=== PATIENT | male | born 1940 | race American Indian/Alaskan Native ===

== ENCOUNTER 2016-09-23 12:40 | Inpatient (IN) | payer MEDICARE ==
[2016-09-23 13:39] LABS: Basophils % (Auto) 0.7 % (0.0-1.8); Eosinophils % (Auto) 1.1 % (0.0-4.3); Hemoglobin 15.4 gm/dl (11.8-15.2); Mean Corpuscular HGB Conc 33 % (32-34); Mean Corpuscular Hemoglobin 30 pg (28-32); Mean Corpuscular Volume 92 fl (84-94); Platelet Count 341 K/mm3 (140-440); Red Blood Count 5.09 M/mm3 (3.65-5.03); Red Cell Distribution Width 14.9 % (13.2-15.2); White Blood Count 5.1 K/mm3 (4.5-11.0)
[2016-09-23 13:44] LABS: BUN/Creatinine Ratio 17.91; Calcium 9.6 mg/dL (8.4-10.2); Chloride 96.9 mmol/L (98-107)
[2016-09-23 13:50] LABS: Potassium 6.2 mmol/L (3.6-5.0)
[2016-09-23 14:05] LABS: Bilirubin,Urine NEG (Negative); Blood,Urine LG (Negative); Ketones,Urine NEG (Negative); Leukocyte Esterase,Urine TR (Negative); Nitrite,Urine NEG (Negative); RBC,Urine > 182.0 /HPF (0.0-6.0); Urobilinogen,Urine < 2.0 mg/dL (<2.0)
[2016-09-23] MEDS ORDERED: NACL 0.9% 1000 ML 1,000 ML IV ONE (14:21)
[2016-09-23] MEDS ORDERED: CALCIUM GLUCONATE 1,000 MG in NACL 0.9% 100 ML IV ONE (14:21)
--- NOTE | 2016-09-23 14:27 | Emergency Department Report ---
ED Male HPI - General Chief complaint: Urogenital-Male Stated complaint: PROSTATE PROBLEM Time Seen by Provider: 09/23/16 14:12 Source: patient Mode of arrival: Ambulatory Limitations: No Limitations - History of Present Illness Initial comments: 76-year-old male presents to the emergency department complaining of hematuria and dysuria for the past 2 weeks. Patient reports dark red blood in his urine. He denies abdominal pain or fever. Patient sees Dr. Mir, urology, for enlarged prostate. There are no other complaints. MD Complaint: dysuria -: Gradual, week(s) (2) Location: penis Radiation: none Severity: mild Quality: burning Consistency: intermittent Improves with: none Worsens with: urination blood in urine - Related Data Home Medications Medication Instructions Recorded Confirmed Last Taken Unobtainable 09/23/16 09/23/16 Unknown Allergies Allergy/AdvReac Type Severity Reaction Status Date / Time iodine Allergy Rash Verified 09/23/16 13:14 Sulfa (Sulfonamide Allergy Rash Verified 09/23/16 13:14 Antibiotics) ED Review of Systems ROS: Stated complaint: PROSTATE PROBLEM Other details as noted in HPI Comment: All other systems reviewed and negative Genitourinary: dysuria, hematuria ED Past Medical Hx - Past Medical History Previous Medical History?: Yes Hx Hypertension: Yes Hx Diabetes: Yes Additional medical history: enlarged prostate - Surgical History Past Surgical History?: Yes Additional Surgical History: TURP - Family History Family history: no significant - Social History Smoking Status: Current Every Day Smoker Substance Use Type: Alcohol, Non Opiate Pain, Prescribed - Medications Home Medications: Home Medications Medication Instructions Recorded Confirmed Last Taken Type Unobtainable 09/23/16 09/23/16 Unknown History ED Physical Exam - General Limitations: No Limitations General appearance: alert, in no apparent distress - Head Head exam: Present: atraumatic, normocephalic - Eye Eye exam: Present: normal appearance, PERRL, EOMI - ENT ENT exam: Present: normal exam, normal orophraynx, mucous membranes moist - Neck Neck exam: Present: normal inspection, full ROM. Absent: tenderness - Respiratory Respiratory exam: Present: normal lung sounds bilaterally. Absent: respiratory distress - Cardiovascular Cardiovascular Exam: Present: regular rate, normal rhythm, normal heart sounds - GI/Abdominal GI/Abdominal exam: Present: soft, normal bowel sounds. Absent: distended, tenderness - Extremities Exam Extremities exam: Present: normal inspection, full ROM. Absent: tenderness - Back Exam Back exam: Present: normal inspection, full ROM. Absent: tenderness - Neurological Exam Neurological exam: Present: alert, oriented X3. Absent: motor sensory deficit - Skin Skin exam: Present: warm, dry, intact ED Course Vital Signs 09/23/16 13:14 Temperature 97.5 F L Pulse Rate 88 Respiratory 20 Rate Blood Pressure 128/75 O2 Sat by Pulse 99 Oximetry - Consultations Consultation #1: 09/23/16 14:27 I have spoken with Dr[address] Mir, urology. He is requesting noncontrast CT of the abdomen and pelvis due to the hematuria. Consultation #2: 09/23/16 14:[address] Russell, nephrology. He is requesting the patient be given 30 g of Kayexalate orally. ED Medical Decision Making - Lab Data Result diagrams: 09/23/16 13:24 09/23/16 13:24 - Medical Decision Making Laboratory results reviewed and discussed with the patient. Patient reports no history of renal problems. Elevated creatinine with elevated potassium levels are noted. Giving IV calcium as well as IV insulin and dextrose. Starting IV fluids. Consult was placed to nephrology and urology. Patient is to be admitted by the hospitalist. - Differential Diagnosis BPH, UTI, prostatitis Critical Care Time: Yes Critical care time in (mins) excluding proc time.: 30 Critical care attestation.: If time is entered above; I have spent that time in minutes in the direct care of this critically ill patient, excluding procedure time. Critical Care Time: The high probability of a clinically significant, sudden or life threatening deterioration of the renal, cardiovascular system(s) required my full and direct attention, intervention and personal management. The aggregate critical care time was 30 minutes. This time is in addition to time spent performing reported procedures but includes the following: [x] Data Review and interpretation [x] Patient assessment and monitoring of vital signs [x] Documentation [x] Medication orders and management ED Disposition Clinical Impression: Hematuria, Hyperkalemia Acute renal failure Qualifiers: Acute renal failure type: unspecified Qualified Code(s): N17.9 - Acute kidney failure, unspecified Disposition: OP ADMITTED IP TO THIS HOSP Is pt being admited?: Yes Condition: Stable Time of Disposition: 14:33
[2016-09-23] MEDS ORDERED: KAYEXALATE PO ONE (14:31)
[2016-09-23] MEDS ORDERED: CALCIUM GLUCONATE IV ONE (14:44)
[2016-09-23] MEDS ORDERED: D50W (25GM) IV ONE ×2 (15:00→16:35)
[2016-09-23] MEDS ORDERED: NACL 0.9% 1000 ML 1,000 ML IV SCH (15:00)
[2016-09-23] MEDS ORDERED: CALCIUM CHLORIDE IV ONE (15:06)
--- NOTE | 2016-09-23 16:26 | Cat Scan Report ---
CT abdomen and pelvis without contrast: Transverse images were obtained from the low chest and ischium with coronal and sagittal 2-D reformatted images. The visualized lung bases are clear. The solid abdominal organs are generally unremarkable. There is a hypodense 2.45 cm right adrenal mass and a 3.1 cm left adrenal mass. The attenuation of both masses is consistent with having significant fat. The kidneys are unremarkable with no evidence of mass, hydronephrosis, or calculi. The abdominal aorta is normal in size and contour but there is significant mural calcification. The unopacified bowel and mesentery appear unremarkable. The appendix is visualized. No free air or abnormal fluid collections. Sections through the pelvis demonstrates a left inguinal hernia containing fat. There is moderate enlargement of the prostate gland with indentation on the bladder base. Mild spondylosis of the lumbar spine is noted. There is a large Schmorl's node in the inferior L5 body. The bones are generally demineralized. Impressions: 1. Bilateral adrenal adenomas. 2. Prosthetic enlargement. 3. Demineralized bones and degenerative lumbar spine changes as detailed above.
--- NOTE | 2016-09-23 18:43 | Event Note ---
Date: 09/23/16 See H/p in reports Acute renal failure Hematuria Hyperkalemia HTN T2dm HLD
[2016-09-23] MEDS ORDERED: VERAPAMIL HCL 120 MG PO SCH (19:00)
[2016-09-23] MEDS ORDERED: ROCEPHIN/NS 2 GM/100 ML 100 ML IV SCH (20:00)
[2016-09-23] MEDS: HABITROL TD SCH (21:10)
[2016-09-23] MEDS: CALAN SR PO SCH (21:10)
[2016-09-23] MEDS: HCTZ PO SCH (21:10)
[2016-09-23] MEDS: PROSCAR PO SCH (21:11)
[2016-09-23] MEDS: ZESTRIL PO SCH (21:11)
[2016-09-23] MEDS: NACL 0.9% 1000 ML 1,000 ML IV SCH (21:12)
[2016-09-23] MEDS ORDERED: PRAVASTATIN SODIUM 80 MG PO SCH (22:00)
[2016-09-23] MEDS: NOVOLOG SUB-Q SCH (22:30)
--- NOTE | 2016-09-23 23:44 | Admit Criteria Form ---
Admission Criteria Documentation: RENAL FAILURE, ACUTE Clinical Indications for Admission to Inpatient Care ( Place 'X' for any and all applicable criteria): Admission is indicated for ALL (if I & II) or III of the following [A](2)(3)(4)( 5)(6)(7): [ ]I. Acute renal failure as indicated by ANY ONE of the following: [ ]a) A 3-fold rise in serum creatinine from baseline [ ]b) Serum creatinine greater than 4 mg/dL (354 micromoles/L) with an acute rise greater than 0.5 mg/dL (44.2 micromoles/L) [ ]c) Reduction of more than 75% in estimated glomerular filtration rate from baseline [ ]d) Estimated glomerular filtration rate less than 35 mL/min/1.73m2 (0.59mL/sec/1.73m2)in a child up to 18 years of age [ ]e) Anuria indicated by ALL of the following: [ ]i) Adequate volume status [ ]ii) Cessation of urine output indicated by ANY ONE of the following: [ ]1) Urine output less than 0.3 mL/kg/hr for 24 hours [ ]2) Anuria (urine output less than 0.1 mL/kg/ hr) for 12 hours [X ] II. Renal failure cannot be managed in an outpatient setting or observational care setting as indicating by ANY ONE of the following: [ ]a) Altered mental status that is severe or persistent [ ]b) Volume overload or Respiratory distress (eg, clinically significant pulmonary edema) that is severe or persistent [ ]c) Cardiac arrhythmias of immediate concern [ ]d) Hemodynamic instability [X ]e) Clinically significant electrolyte abnormality that requires inpatient care (eg, hyperkalemia with severe ECG findings)[B] [ ]f) Clinically significant metabolic abnormality (eg, acidosis) that is severe or persistent [ ]g) Acute treatment of renal failure (eg, renal replacement therapy) not feasible or appropriate in observational care setting [ ]h) Clinical situation too unstable or uncertain (eg, inadequate urine output, ongoing decline in renal function, etiology unclear) [ ]i) Necessary support and caregiver ability to comply with outpatient treatment cannot be arranged in observation care timeframe (eg, within 24 hours) [ ]j) Other significant finding or clinical condition judged not to be within scope of observation care [ ]III.General contraindications and/or Inappropriate clinical situations for Observational Care in patients with Acute Renal Failure, when ANY ONE of the following is required: [ ]a) Prediction of prolongation of LOS based on ANY ONE of the following may be considered as a contraindication for observational care 2, 3, 4, 5, 6, 7, 8 , 9, 10, 11 [ ]i) Age > 65 yrs. [ ]ii) Patient arriving by ambulance [ ]iii) Patient with high acuity [ ]iv) Patient requiring vital sign monitoring [ ]v) Patient on IV medication [ ]b) Systolic blood pressures 180mmHg 3,12 [ ]c) Patient with altered mental status including delirium and other alteration of consciousness, (3) [ ]d) Patient whose discharge disposition will be to a correction home or rehabilitation home should not be managed in Emergency Department Observation Unit. CMS rule requires 3 days hospital stay before such placement.3,13 [ ]e) Patient with failure to thrive due to broad array of etiologies 3, 16,17 [ ]f) Inability to ambulate 3,14 Extended stay beyond goal length of stay may be needed for(13) [ ]a) Continuing uremic complications [ ]b) Care for comorbidities [ ]c) acute renal failure [ ]d) Need for dialysis The original [employer] content created by [employer] has been revised. The portions of the content which have been revised are identified through the use of italic text or in bold, and [facility] has neither reviewed nor approved the modified material. All other unmodified content is copyright [employer]. Please see references footnoted in the original [facility] edition 2016 Admission Criteria Met: Yes
--- NOTE | 2016-09-24 01:19 | History and Physical Report ---
CHIEF COMPLAINT: Blood in the urine for the past 2 weeks. HISTORY OF PRESENT ILLNESS: A 76-year-old male who presents with hematuria and dysuria for the past 2 weeks. Dark red blood in the urine. No recent trauma. No past episodes of bleeding per urethra. No fever. No chills. Has some discomfort while passing urine. Some blood clots present. PAST MEDICAL HISTORY: Significant for enlarged prostate, diabetes, hypertension, and hyperlipidemia. CURRENT MEDICATIONS: Lisinopril 20 mg daily, hydrochlorothiazide 25 mg daily, Pravastatin 80 mg p.o. at bedtime, metformin 500 mg t.i.d., Proscar 5 mg p.o. daily, verapamil ER 120 mg p.o. daily. PAST SURGICAL HISTORY: TURP. FAMILY HISTORY: Hypertension present. SOCIAL HISTORY: Current everyday smoker about 3/4 pack a day. Alcohol occasionally. Non-opioid for pain. Current medications as mentioned. REVIEW OF SYSTEMS: Significant for blood in the urine. No fever, no chills. Discomfort while passing the urine. Also, feels weak. Otherwise, review of systems unremarkable. PHYSICAL EXAMINATION GENERAL: Elderly male, cooperative during examination. VITAL SIGNS: Temperature is 97.5, pulse is 88, respirations 20, blood pressure 128/75, sats are 99%. HEENT: Unremarkable. Pupils equal and reactive. NECK: Supple, no lymphadenopathy, no thyromegaly. LUNGS: Clear to auscultation and percussion. Good air entry. CARDIOVASCULAR: S1, S2 heard. No gallop, no murmur, no rub. Apical impulse in left fifth intercostal space and midclavicular line. ABDOMEN: Soft and benign. No hepatosplenomegaly. No guarding, no rigidity. Hernial orifices are normal. EXTREMITIES: Good pedal pulses. No pedal edema. CENTRAL NERVOUS SYSTEM: Alert and oriented x 4, nonfocal exam. LABORATORY DATA: Significant for white count of 5100, H and H is 15.4 and 47.0, platelet count is 341. Potassium is 6.2, BUN and creatinine is 43 and 2.4. , RBCs are 182. EKG shows normal sinus rhythm, no acute ST-T wave changes. ASSESSMENT AND PLAN: 1. Hematuria, rule out bladder tumor. Urology consulted. Transfuse blood if necessary. At this point, the hemoglobin and hematocrit are normal. 2. Hyperkalemia. The patient was given IV insulin, dextrose, calcium, and Kayexalate in the ER. We will recheck the potassium. 3. Acute renal failure. IV fluids for the time being. 4. Hypertension. Continue lisinopril and hold hydrochlorothiazide and continue verapamil. 5. Benign prostatic hypertrophy. Continue Proscar 5 mg p.o. daily. 6. Type 2 diabetes mellitus. We will hold the metformin because of the elevated creatinine. We will get coverage. 7. Hyperlipidemia. Continue pravastatin 80 mg p.o. at bedtime. 8. Deep venous thrombosis prophylaxis, only SCDs, no Lovenox. JOB# [id number] WILBER/NTS
[2016-09-24] MEDS: PERCOCET 5/325 PO PRN ×2 (02:45→06:24)
[2016-09-24 03:33] LABS: Albumin 3.6 g/dL (3.9-5); Albumin/Globulin Ratio 1.3 %; BUN/Creatinine Ratio 21.25; Bilirubin,Total 0.3 mg/dL (0.1-1.2); Calcium 8.9 mg/dL (8.4-10.2); Chloride 98.8 mmol/L (98-107); Magnesium 1.5 mg/dL (1.7-2.3); Potassium 4.8 mmol/L (3.6-5.0); Total Protein 6.4 g/dL (6.3-8.2)
[2016-09-24] MEDS: NACL 0.9% 1000 ML 1,000 ML IV SCH (06:24)
--- NOTE | 2016-09-24 08:38 | Consultation ---
History of Present Illness - Reason for Consult Consult date: 09/24/16 - History of Present Illness 76-year-old male presents to the emergency department complaining of hematuria and dysuria for the past 2 weeks. Patient reports dark red blood in his urine. He denies abdominal pain or fever. Patient sees Dr. Mir, urology, for enlarged prostate. There are no other complaints. HTN, DIABETES CTAP (1-2-17) BPH, no hydro A/P renal insuff BPH hydrate & observe may need cysto as an out pt Medications and Allergies Allergies Allergy/AdvReac Type Severity Reaction Status Date / Time iodine Allergy Rash Verified 09/23/16 13:14 Sulfa (Sulfonamide Allergy Rash Verified 09/23/16 13:14 Antibiotics) Home Medications Medication Instructions Recorded Confirmed Last Taken Type Finasteride [Proscar] 5 mg PO DAILY 09/23/16 09/23/16 Unknown History Hydrochlorothiazide [HCTZ] 25 mg PO DAILY 09/23/16 09/23/16 Unknown History Lisinopril [Zestril TAB] 20 mg PO AMHY 09/23/16 09/23/16 Unknown History Pravastatin Sodium [Pravastatin] 80 mg PO QHS 09/23/16 09/23/16 Unknown History Verapamil HCl [Verapamil ER] 120 mg PO DAILY 09/23/16 09/23/16 Unknown History metFORMIN [Glucophage] 500 mg PO TID 09/23/16 09/23/16 Unknown History Active Meds: Active Medications Finasteride (Proscar) 5 mg PO DAILY [facility] Last Admin: 09/23/16 21:11 Dose: 5 mg Hydrochlorothiazide (Hctz) 25 mg PO DAILY [facility] Last Admin: 09/23/16 21:10 Dose: 25 mg Ceftriaxone Sodium (Rocephin/Ns 2 Gm/100 Ml) 100 mls @ 200 mls/hr IV Q24H NIK PRN Reason: Protocol Last Admin: 09/23/16 21:09 Dose: 200 mls/hr Sodium Chloride (Nacl 0.9% 1000 Ml) 1,000 mls @ 100 mls/hr IV DIRECT [facility] Last Admin: 09/24/16 06:24 Dose: 100 mls/hr Insulin Aspart (Novolog) 0 units SUB-Q ACHS NIK PRN Reason: Protocol Last Admin: 09/23/16 22:30 Dose: Not Given Lisinopril (Zestril) 20 mg PO QAM [facility] Last Admin: 09/23/16 21:11 Dose: 20 mg Miscellaneous Medication (Pravastatin Sodium [Pravastatin]) 80 mg PO QHS [facility] Nicotine (Habitrol) 21 mg TD QDAY [facility] Last Admin: 09/23/16 21:10 Dose: 21 mg Oxycodone/Acetaminophen (Percocet 5/325) 1 tab PO Q4H PRN PRN Reason: Pain, Moderate (4-6) Last Admin: 09/24/16 06:24 Dose: 1 tab Verapamil HCl (Calan Sr) 120 mg PO QDAY [facility] Last Admin: 09/23/16 21:10 Dose: 120 mg Exam - Constitutional Vitals: Temp Pulse Resp BP Pulse Ox 98.0 F 86 20 114/67 97 09/24/16 04:29 09/24/16 04:29 09/24/16 07:17 09/24/16 04:29 09/24/16 04:29 Results - Labs CBC & Chem 7: 09/23/16 13:24 09/24/16 03:02 Labs: Abnormal lab results 09/23/16 09/23/16 09/23/16 Range/Units 15:04 16:36 17:06 Sodium (137-145) mmol/L BUN (9-20) mg/dL Creatinine (0.8-1.5) mg/dL Glucose (75-100) mg/dL POC Glucose 165 H 55 L 109 H (70-105) Magnesium (1.7-2.3) mg/dL Albumin (3.9-5) g/dL 09/23/16 09/24/16 Range/Units 21:38 03:02 Sodium 136 L (137-145) mmol/L BUN 34 H (9-20) mg/dL Creatinine 1.6 H (0.8-1.5) mg/dL Glucose 137 H (75-100) mg/dL POC Glucose 139 H (70-105) Magnesium 1.5 L (1.7-2.3) mg/dL Albumin 3.6 L (3.9-5) g/dL
[2016-09-24] MEDS: PROSCAR PO SCH (09:04)
[2016-09-24] MEDS: HCTZ PO SCH (09:04)
[2016-09-24] MEDS: ZESTRIL PO SCH (09:04)
[2016-09-24] MEDS: NOVOLOG SUB-Q SCH ×2 (09:05→13:46)
[2016-09-24] MEDS: CALAN SR PO SCH (09:05)
[2016-09-24] MEDS: HABITROL TD SCH (09:05)
[2016-09-24] MEDS ORDERED: MAGNESIUM SULFATE 2GM/50ML 50 ML IV ONE (09:30)
--- NOTE | 2016-09-24 10:40 | Consultation ---
History of Present Illness - Reason for Consult Consult date: 09/24/16 acute renal failure Requesting physician: EDUARDO GRAHAM - History of Present Illness 76-year-old male presents to the emergency department yesterday complaining of hematuria and dysuria for the past 2 weeks. Patient reports dark red blood in his urine. He denies abdominal pain or fever. Patient sees Dr. Mir, urology , for enlarged prostate. There are no other complaints. Patient denies any previous knowledge of renal dysfunction. Denies any history of significant nonsteroidal use. No recent nausea vomiting or diarrhea. Past History Past Medical History: diabetes, hypertension, other (BPH) Past Surgical History: TURP Social history: smoking, other (he drinks alcohol socially) Medications and Allergies Allergies Allergy/AdvReac Type Severity Reaction Status Date / Time iodine Allergy Rash Verified 09/23/16 13:14 Sulfa (Sulfonamide Allergy Rash Verified 09/23/16 13:14 Antibiotics) Home Medications Medication Instructions Recorded Confirmed Last Taken Type Finasteride [Proscar] 5 mg PO DAILY 09/23/16 09/23/16 Unknown History Hydrochlorothiazide [HCTZ] 25 mg PO DAILY 09/23/16 09/23/16 Unknown History Lisinopril [Zestril TAB] 20 mg PO AMHY 09/23/16 09/23/16 Unknown History Pravastatin Sodium [Pravastatin] 80 mg PO QHS 09/23/16 09/23/16 Unknown History Verapamil HCl [Verapamil ER] 120 mg PO DAILY 09/23/16 09/23/16 Unknown History metFORMIN [Glucophage] 500 mg PO TID 09/23/16 09/23/16 Unknown History Active Meds: Active Medications Finasteride (Proscar) 5 mg PO DAILY [facility] Last Admin: 09/24/16 09:04 Dose: 5 mg Hydrochlorothiazide (Hctz) 25 mg PO DAILY [facility] Last Admin: 09/24/16 09:04 Dose: 25 mg Ceftriaxone Sodium (Rocephin/Ns 2 Gm/100 Ml) 100 mls @ 200 mls/hr IV Q24H [facility] PRN Reason: Protocol Last Admin: 09/23/16 21:09 Dose: 200 mls/hr Sodium Chloride (Nacl 0.9% 1000 Ml) 1,000 mls @ 100 mls/hr IV DIRECT [facility] Last Admin: 09/24/16 06:24 Dose: 100 mls/hr Magnesium Sulfate (Magnesium Sulfate 2gm/50ml) 50 mls @ 25 mls/hr IV ONCE ONE Stop: 09/24/16 11:29 Last Admin: 09/24/16 09:12 Dose: 25 mls/hr Insulin Aspart (Novolog) 0 units SUB-Q ACHS NIK PRN Reason: Protocol Last Admin: 09/24/16 09:05 Dose: Not Given Lisinopril (Zestril) 20 mg PO QAM [facility] Last Admin: 09/24/16 09:04 Dose: 20 mg Miscellaneous Medication (Pravastatin Sodium [Pravastatin]) 80 mg PO QHS NIK Nicotine (Habitrol) 21 mg TD QDAY [facility] Last Admin: 09/24/16 09:05 Dose: 21 mg Oxycodone/Acetaminophen (Percocet 5/325) 1 tab PO Q4H PRN PRN Reason: Pain, Moderate (4-6) Last Admin: 09/24/16 06:24 Dose: 1 tab Verapamil HCl (Calan Sr) 120 mg PO QDAY [facility] Last Admin: 09/24/16 09:05 Dose: 120 mg Review of Systems All systems: negative (except as noted above) Exam - Vital Signs Vital signs: Vital Signs Temp Pulse Resp BP Pulse Ox 97.5 F L 88 20 128/75 99 09/23/16 13:14 09/23/16 13:14 09/23/16 13:14 09/23/16 13:14 09/23/16 13:14 - General Appearance General appearance: well-developed, well-nourished, appears stated age EENT: PERRL, mucous membranes moist Neck: Present: neck supple, trachea midline. Absent: JVD/HJR, Masses Respiratory: Clear to Ascultation Heart: regular, normal heart rate, S1S2, no murmurs Gastrointestinal: Present: normal, normoactive bowel sounds Integumentary: no rash, warm and dry Results - Lab Results 09/23/16 13:24 09/24/16 03:02 Most recent lab results Calcium 8.9 mg/dL (8.4-10.2) 09/24/16 03:02 Magnesium 1.5 mg/dL (1.7-2.3) L 09/24/16 03:02 Assessment and Plan Impression * Acute kidney injury. Most likely prerenal * Hypertension * BPH * Diabetes Recommendations * Agree with IV hydration * Shall check a UA as well as a fractional excretion of sodium * Shall hold his YOLANDA inhibitor as well as diuretics * Of vasculitis workup as well * The CT scan did not show any evidence of obstructive uropathy * Monitor patient's fluid status, electrolytes and renal function closely * Avoid nephrotoxins * Thank you very much for the consultation. Shall follow along with you
[2016-09-24 11:52] LABS: BUN/Creatinine Ratio 18.66; Calcium 9.2 mg/dL (8.4-10.2); Chloride 98.1 mmol/L (98-107); Potassium 4.6 mmol/L (3.6-5.0)
[2016-09-24 11:54] LABS: Fractional Sodium Excretion 0.8
--- NOTE | 2016-09-24 12:36 | Consultation ---
REASON FOR CONSULTATION: Hematuria, prostatitis. HISTORY OF PRESENT ILLNESS: This patient is a 76-year-old gentleman known to our service, last seen 10/2015, with a history of BPH, but he developed 2 weeks of voiding dysfunction, a frequency, urgency. The patient states he has been on his Cardura. He is a smoker. Does admit to significant amounts of irritants in the form of caffeine and alcohol. Presented to the Emergency Room. He was found to have elevated creatinine of 2.4. CT of abdomen and pelvis was unremarkable, enlarged prostate, no hydronephrosis. ALLERGIES: He has allergies to iodine and sulfa. PHYSICAL EXAMINATION: VITAL SIGNS: Temperature 98.5, respirations 20, pulse 81, BP 158/76. BACK: No CVA tenderness. ABDOMEN: Soft. LABORATORY DATA: Initial BUN and creatinine 43 and 2.4, potassium was 6.2. Nephrology is involved. Hemoglobin and hematocrit of 15 and 47 respectively, white count 5000, platelets are 347,000. Repeat creatinine now is 1.6. MEDICATIONS: Finasteride, hydrochlorothiazide, lisinopril, verapamil, pravastatin, metformin. PAST MEDICAL HISTORY: Diabetes, hypertension. ASSESSMENT AND PLAN: Renal insufficiency, benign prostatic hypertrophy, hypertension, diabetes. With a normal CT, this patient does not need any surgical intervention. Recommend hydration, correct his metabolic abnormalities. We will follow up in the office, may need a cystoscopy as an outpatient. JOB# [id number] DUNIA/NTS
[2016-09-24 12:38] VITALS: BP 182/86
--- NOTE | 2016-09-24 15:03 | Discharge Summary ---
Providers - Providers Date of Admission: 09/23/16 14:34 Date of discharge: 09/24/16 Attending physician: MILLICENT PAIZ 09/23/16 15:09 Consult to Physician [CONS] Routine Consulting Provider: BECKY ARECHIGA Reason For Exam: hematuria Place consult to:: dr arechiga Notified:: y Was contact made?: Yes If yes, spoke with:: dr arechiga Time called:: 14:25 09/23/16 15:10 Consult to Physician [CONS] Routine Consulting Provider: LENNOX MARIN Reason For Exam: ARF with hyperkalemia Place consult to:: dr marin Notified:: y Was contact made?: Yes If yes, spoke with:: dr marin Time called:: 14:30 Primary care physician: BECKY ARECHIGA Hospitalization Reason for admission: Hematuria,dysuria Condition: Stable Hospital course: Final diagnosis; Hematuria; resolved Hyperkalemia; corrected Hypertension Acute renal failure improved Type 2 diabetes mellitus Benign prostatitic hypertrophy Dyslipidemia Incidental asymptomatic nonsustained VT on monitor Follow up with cardiology for further evaluation as outpatient Dictated#[id number] Disposition: DISCHARGED TO HOME OR SELFCARE Time spent for discharge: 32 min Core Measure Documentation - Palliative Care Palliative Care/ Comfort Measures: Not Applicable - Core Measures Any of the following diagnoses?: none Exam - Constitutional Vitals: Temp Pulse Resp BP Pulse Ox 97.8 F 118 H 20 182/86 97 09/24/16 12:35 09/24/16 12:35 09/24/16 12:35 09/24/16 12:35 09/24/16 04:29 General appearance: Present: no acute distress, well-nourished - EENT Eyes: Present: PERRL, EOM intact Plan Activity: no restrictions Diet: low salt, diabetic Additional Instructions: f/u PMD 1 week. to see [facility] , 1 week for further evaluation of asymptomatic non sustained VT on monotor. Follow up with: BECKY ARECHIGA MD [Primary Care Provider] - 7 Days JUJU HALL MD [Staff Physician] - 7 Days Prescriptions: Levofloxacin [Levaquin TAB] 500 mg PO QDAY #5 tablet Nicotine [Habitrol] 21 mg TD QDAY #30 patch
[2016-09-25 20:32] LABS: Myeloperoxidase Antibody <1.0 AI (<1.0)
--- NOTE | 2016-09-26 12:38 | Query- General ---
Mariano Flanagan Date:_09/26/16 Dental Financial Coordinator/CDS:Lilly Vazquez Phone#:_[phone] Exercise your independent professional judgment when responding to this query. Questions asked do not imply a particular answer is desired or expected. We greatly appreciate your clarification on this issue. Clinical Documentation States: 76 Y/O Male admitted on 09/23/16 with Hx. of BPH, DM, HTN presents with 2 week history of hematuria and dysuria with dark red blood. H&P states "Hematuria, Rule out bladder tumor" Clinical Findings Show (include reference to source document): CT abdomen: bilateral adrenal adenomas, moderate enlargement of the prostate gland with indentation on the bladder base. Given the above clinical scenario can you please provide an appropriate diagnosis based on your knowledge of the patient: PHYSICIAN RESPONSE: Bladder tumor: [ ] Ruled in [ ] Ruled out [ ] Other [ X] Unable to determine Present on Admission: [ ] Yes (Y) [X ] Clinically undeterminable (W) [ ]No(N) Please also document response in your Progress Notes and/or Discharge Summary and indicate if the condition was present on admission. MTDD
--- NOTE | 2016-09-26 13:01 | Query- General ---
Dear Date:_09/26/16 Clinical Program Coordinator/CDS:Lilly Vazquez Phone#:_[phone] Exercise your independent professional judgment when responding to this query. Questions asked do not imply a particular answer is desired or expected. We greatly appreciate your clarification on this issue. Clinical Documentation States: 76 Y/O Male admitted on 09/23/16 with Hx. of enlarged prostate, HTN, DM presents with 2 week history of hematuria and dysuria with dark red urine. No past episodes of bleeding per urethra. Some blood clots present. History of TURP in the past. Clinical Findings Show (include reference to source document): CT Abdomen: Bilateral adrenal adenomas, prosthetic enlargement Dr. Mir consult note states "may need cysto as outpatient" Given the above clinical scenario can you please provide an appropriate diagnosis based on your knowledge of the patient: PHYSICIAN RESPONSE: Etiology of Hematuria: [ ] With acute cystitis [ ] Due to anticoagulation [ ] Due to Sulphonamide [ ] Endemic [ ] Idiopathic [ ] Intermittent [ ] Persistent [ x ] OTHE hematuria with protatitis [ ] Unable to determine Present on Admission: [ x] Yes (Y) [ ] Clinically undeterminable (W) [ ]No(N) Please also document response in your Progress Notes and/or Discharge Summary and indicate if the condition was present on admission. ANAYELID
--- NOTE | 2016-10-01 00:47 | Discharge Summary ---
ADMITTING PHYSICIAN: Dr. Anderson. PRIMARY UROLOGIST: Dr. Mir. DISCHARGING PHYSICIAN: Dr. Marysol Garza. FINAL DIAGNOSES: 1. Hematuria. 2. Acute prostatitis. 3. Acute renal failure, probably secondary to vasomotor nephropathy. 4. Benign prostatic hypertrophy. 5. History of hypertension. 6. History of type 2 diabetes mellitus. 7. Ongoing tobacco use. CONSULTS: Urology, Dr. Mir. Admitting physician, Dr. Anderson. Discharging physician: Dr. Garza. TESTS AND PROCEDURES: CT abdomen and pelvis: Bilateral adrenal adenoma, prostatic enlargement, demineralized bones and degenerative lumbar spine. BRIEF HISTORY AND HOSPITAL COURSE: Please refer to medical records for details. Very pleasant 76-year-old male patient, who follows with urologist, Dr. Mir, was admitted through Emergency Room with history of hood hematuria and dysuria of 2 weeks' duration. The patient was initially evaluated and admitted to the hospital and initial evaluation was consistent with acute renal failure, probably secondary to vasomotor nephropathy and acute prostatitis. Admitted, symptomatically managed with IV hydration and empiric IV antibiotics. Subsequently evaluated by urologist, Dr. Mir and estate attorney. The patient's symptoms slowly but gradually improved. Acute renal failure completely resolved. Renal function returned to baseline and the patient's symptoms significantly improved. On the day of discharge, the patient was comfortable in bed, alert, awake, oriented x 3, not in acute distress. Vital signs were stable. Twec-au-[id number] evaluation and physical examination done by wa prior to discharge is unremarkable. During the hospital stay, the patient also received her antihypertensives and diabetic medications, and blood pressures and blood sugars were dropped to reasonable levels. [id number] evaluation and physical examination done by wa prior to discharge is unremarkable as detailed below. Cleared by Urology and Nephrology for discharge and follow up with them in the office for further evaluation and management. DISCHARGE MEDICATIONS: Levaquin 500 mg p.o. daily for 5 days and nicotine patch 21 mg daily, and the patient will continue his home medications, metformin, verapamil, Pravastatin, lisinopril, hydrochlorothiazide, and finasteride. DISCHARGE DIET: 2 gram sodium, 1800 calorie ADA diet as tolerated. ACTIVITIES: As tolerated. FOLLOWUP: Follow up with primary care physician in 3 to [address] Mir in 1 week and estate attorney as needed. Discharge activities as tolerated. The patient also had asymptomatic nonsustained VT on the monitor and the patient advised to see blending tank tender in one week for further evaluation and management of arrhythmia. The patient was asymptomatic at the time of discharge and had sinus rhythm on the monitor. Smoking cessation counseling done. The patient was counseled extensively the risks and consequences of ongoing tobacco use and also advised nicotine patch, and the patient verbalized understanding. I spent 10 minutes counseling this patient. FINAL DISPOSITION: Discharged home. CONDITION UPON DISCHARGE: Hemodynamically and clinically stable. I spent 32 minutes coordinating this discharge. JOB# [id number] SHEILA/HATTIE SANTILLAN
== END 2016-09-24 16:11 | disposition home or self-care (01) | DRG 727 ==
LOC: ED 12:40 → 4A 14:34
PROVIDERS: ADMIT Internal Medicine; ATTEND Internal Medicine
DX: N41.0 Acute prostatitis (principal); N17.0 Acute kidney failure with tubular necrosis; I47.2 Ventricular tachycardia; E87.5 Hyperkalemia; E78.5 Hyperlipidemia, unspecified; I10 Essential (primary) hypertension; E11.9 Type 2 diabetes mellitus without complications; F17.210 Nicotine dependence, cigarettes, uncomplicated; Z88.8 Allergy status to other drugs, medicaments and biological substances; Z88.2 Allergy status to sulfonamides; Z98.890 Other specified postprocedural states; Z79.84 Long term (current) use of oral hypoglycemic drugs; Z79.899 Other long term (current) drug therapy; Z82.49 Family history of ischemic heart disease and other diseases of the circulatory system; N40.1 Benign prostatic hyperplasia with lower urinary tract symptoms; Z71.6 Tobacco abuse counseling
CPT/HCPCS: 36415; 74176; 80048; 80053; 80074; 81001; 82570; 82962; 83735; 84300; 85025; 86021; 86038; 86160; 86225; 93005; 93010; 96361; 96374; 96375; 99291; J0610; J0696; J1815; J3475; J7030